=== PATIENT | male | born 1965 | race Caucasian/White ===

== ENCOUNTER 2018-03-02 10:25 | Day surgery (SDC) | payer BC ==
[2018-03-02] MEDS ORDERED: fentaNYL 100 MCG/2 ML SDV ONE (11:14)
[2018-03-02] MEDS ORDERED: Propofol 200 MG/20 ML SDV ONE ×4 (11:14→12:34)
[2018-03-02] MEDS: Lactated Ringers 1,000 ML IV SCH (11:28)
--- NOTE | 2018-03-03 12:15 | OR ---
PREOPERATIVE DIAGNOSIS: Positive FIT test. POSTOPERATIVE DIAGNOSIS: Positive FIT test. PROCEDURE PERFORMED: Colonoscopy with polypectomy. INDICATION: The patient is a 52-year-old male with history of positive FIT test. No previous colonoscopy. He presented for screening colonoscopy at this time. PROCEDURE IN DETAILS: The patient was brought to the operating room. Sedation was given per Anesthesia. He was placed in left lateral position. First, rectal exam was done, which was normal. Scope was then introduced into the rectum, slowly advanced through the rectum, sigmoid, descending, transverse, and ascending colon until the cecum was reached. Upon reaching the cecum, the scope was slowly withdrawn, looking all mucosal surfaces on the way out. In the cecum, a polyp was noted and removed by hot loop forceps. In the ascending colon, a polyp was noted and removed by hot loop forceps. This was un- retrievable. At 100 cm, another polyp was found, removed by hot loop forceps. At 90 cm, 2 polyps were located and removed by hot loop forceps. At 70 cm, 1 polyp was located, removed by hot loop forceps. At 55 cm, 2 polyps were located and removed by hot loop forceps and finally at 15 cm, a single polyp was started with hot loop forceps. The remainder of the exam was normal. FINAL DIAGNOSIS: Multiple polyps removed. BKD: 03/02/2018 13:08:59 MODL: 03/02/2018 15:09:32 /[id number]
== END 2018-03-02 13:47 | disposition home or self-care (01) ==
LOC: VM.SDS 10:25
PROVIDERS: ATTEND Surgery
DX: R19.5 Other fecal abnormalities (principal); D12.0 Benign neoplasm of cecum; D12.3 Benign neoplasm of transverse colon; D12.4 Benign neoplasm of descending colon; D12.5 Benign neoplasm of sigmoid colon; K63.5 Polyp of colon; I10 Essential (primary) hypertension; F17.210 Nicotine dependence, cigarettes, uncomplicated; F31.9 Bipolar disorder, unspecified; E78.5 Hyperlipidemia, unspecified; Z79.82 Long term (current) use of aspirin; Z79.899 Other long term (current) drug therapy
CPT/HCPCS: 45384; J2704; J3010; J7120

== ENCOUNTER 2021-08-10 09:18 | Emergency (ER) | payer BC, MEDICAID, OTHER ==
[2021-08-10] MEDS ORDERED: Fluorescein 1 MG Ophth Strip ONE (09:29)
[2021-08-10] MEDS ORDERED: Proparacaine 0.5% Ophth Soln 15 ML Bottle ONE (09:29)
--- NOTE | 2021-08-10 10:38 | EDM.PDOC ---
ED HPI GENERAL MEDICAL PROBLEM - General Chief Complaint: Eye Problems Stated Complaint: METAL IN EYE Time Seen by Provider: 08/10/21 09:35 Source of Information: Reports: Patient History Limitations: Reports: No Limitations - History of Present Illness INITIAL COMMENTS - FREE TEXT/NARRATIVE: Pt. presents to ER with complaints of pain to L eye. He states that he was drilling metal with a drill and felt something fly into his eye. Denies any acute vision loss or change. [facility] [place]. Onset: Today Onset Date: 08/10/21 Location: Reports: Face Quality: Reports: Burning, Sharp - Related Data Allergies Allergy/AdvReac Type Severity Reaction Status Date / Time No Known Allergies Allergy Unverified 08/10/21 09:37 Home Meds: Home Meds Citalopram Hydrobromide [Celexa] 20 mg PO DAILY 02/27/18 [History] NIFEdipine [Adalat cc] 30 mg PO DAILY 02/27/18 [History] OLANZapine [ZyPREXA] 2.5 mg PO DAILY 02/27/18 [History] Tamsulosin [Flomax] 0.4 mg PO DAILY 02/27/18 [History] atorvaSTATin [Lipitor] 20 mg PO DAILY 02/27/18 [History] Hydrochlorothiazide/Lisinopril [Lisinopril-HCTZ 20-12.5 MG] 1 tab PO DAILY 08/10/21 [History] Past Medical History HEENT History: Reports: None Cardiovascular History: Reports: High Cholesterol, Hypertension Respiratory History: Reports: None Gastrointestinal History: Reports: None Genitourinary History: Reports: None, BPH 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 Musculoskeletal History: Reports: None Neurological History: Reports: None Psychiatric History: Reports: Bipolar, Depression, Other (See Below) Other Psychiatric History: INSOMNIA Endocrine/Metabolic History: Reports: None Hematologic History: Reports: None Immunologic History: Reports: None Oncologic (Cancer) History: Reports: None Dermatologic History: Reports: None - Past Surgical History Head Surgeries/Procedures: Reports: None Cardiovascular Surgical History: Reports: None Respiratory Surgical History: Reports: None GI Surgical History: Reports: None Male Surgical History: Reports: None Musculoskeletal Surgical History: Reports: None Social & Family History - Tobacco Use Tobacco Use Status *Q: Unknown Ever Used Tobacco - Caffeine Use Caffeine Use: Reports: Coffee ED ROS GENERAL - Review of Systems Review Of Systems: See Below Constitutional: Reports: No Symptoms HEENT: Reports: Eye Pain. Denies: Vision Change Respiratory: Reports: No Symptoms Cardiovascular: Reports: No Symptoms Endocrine: Reports: No Symptoms GI/Abdominal: Reports: No Symptoms : Reports: No Symptoms Musculoskeletal: Reports: No Symptoms Skin: Reports: No Symptoms Neurological: Reports: No Symptoms Psychiatric: Reports: No Symptoms Hematologic/Lymphatic: Reports: No Symptoms Immunologic: Reports: No Symptoms ED EXAM GENERAL W FULL EYE - Physical Exam Exam: See Below Exam Limited By: No Limitations General Appearance: Alert, WD/WN, No Apparent Distress Eye Exam: Left Eye: Normal Inspection (possible very small foreign body noted L eye.), Bilateral Eye: EOMI, Normal Fundi, PERRL Eyelids: Bilateral: Normal Appearance, Lid Everted for Exam Conjunctiva & Sclera: Left: Foreign Body Cornea Exam: Left: Examined with Flourescein Extraocular Movements: Bilateral: Intact Pupils: Normal Accommodation Pupillary Size: Bilateral: 3 mm Pupillary Reaction: Bilateral: Brisk Anterior Chamber: Left: Normal Appearance Posterior Chamber: Left: Normal Funduscopic Nose: No Blood Head: Atraumatic Course - Vital Signs Last Recorded V/S: Last Vital Signs Temp 37.1 C 08/10/21 09:35 Pulse 60 08/10/21 09:35 Resp 16 08/10/21 09:35 BP 107/44 L 08/10/21 09:35 Pulse Ox 97 08/10/21 09:35 - Orders/Labs/Meds Meds: Medications Discontinued Medications Generic Name Dose Route Start Last Admin Trade Name Janell PRNafisa Reason Stop Dose Admin Fluorescein Sodium Confirm 08/10/21 09:29 08/10/21 09:34 Fluorescein 1 Mg Ophth Strip Administered 08/10/21 09:30 1 mg Dose Administration 1 mg .ROUTE .STK-MED ONE Proparacaine HCl Confirm 08/10/21 09:29 08/10/21 09:34 Proparacaine 0.5% Ophth Soln 15 Ml Bottle Administered 08/10/21 09:30 15 ml Dose Administration 15 ml .ROUTE .STK-MED ONE Departure - Departure Time of Disposition: 10:30 Disposition: Home, Self-Care 01 Clinical Impression: Corneal FB (foreign body) - Discharge Information Instructions: Corneal Abrasion, [id number] Referrals: Zoe,Maricel K, HVAC MECHANIC [Primary Care Provider] - Forms: ED Department Discharge Additional Instructions: Home to rest. 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 Address is [address] [place] [address] in [place] Off work 08-10-2021 due to injury. - Problem List Review Problem List Initiated/Reviewed/Updated: Yes - Assessment/Plan Plan: Pt. was discharged. Appointment was made with [facility] in [place] later in the day. There is a very small speck of metal or possibly a corneal abrasion at the edge of the pupil and iris at 12:00 position. It is too small to visualize with the minimal equipment available at this facility. Pt. will require slit lamp examination.
== END 2021-08-10 10:08 | disposition home or self-care (01) ==
LOC: VM.ED 09:18
DX: T15.02XA Foreign body in cornea, left eye, initial encounter (principal); E78.00 Pure hypercholesterolemia, unspecified; I10 Essential (primary) hypertension; N40.0 Benign prostatic hyperplasia without lower urinary tract symptoms; Z79.899 Other long term (current) drug therapy
CPT/HCPCS: 99283

== ENCOUNTER 2025-05-15 21:57 | Emergency (ER) | payer BC ==
[2025-05-16 01:19] LABS: BASOPHILS ABSOLUTE AUTO 0.0 x10^3/uL (0.0-0.2); BASOPHILS PERCENT AUTO 0.4 % (0.2-1.2); EOSINOPHILS ABSOLUTE AUTO 0.2 x10^3/uL (0.0-0.5); EOSINOPHILS PERCENT AUTO 2.3 % (0.0-4.0); IMMATURE GRAN ABSOLUTE AUTO 0.05 x10^3/uL (0.00-0.07); IMMATURE GRAN PERCENT AUTO 0.50 % (0.00-0.43); LYMPHOCYTES ABSOLUTE AUTO 5.5 x10^3/uL (1.0-4.8); LYMPHOCYTES PERCENT AUTO 55.4 % (25.0-50.0); MONOCYTES ABSOLUTE AUTO 0.7 x10^3/uL (0.0-0.8); MONOCYTES PERCENT AUTO 6.6 % (2.0-11.0); NEUTROPHILS ABSOLUTE AUTO 3.5 x10^3/uL (1.8-7.7); NEUTROPHILS PERCENT AUTO 34.8 % (50.0-80.0); PLATELET COUNT,PLT 291 x10^3/uL (130-400); RED BLOOD CELL COUNT 4.46 x10^6/uL (4.5-6.0)
[2025-05-16 01:36] LABS: WHITE BLOOD CELL COUNT,WBC 10.0 x10^3/uL (4.0-10.0)
[2025-05-16 01:40] LABS: APPEARANCE,URINE CLEAR (CLEAR); GLUCOSE,URINE NEGATIVE (NEGATIVE); OCCULT BLOOD,URINE NEGATIVE (NEGATIVE)
[2025-05-16 01:42] LABS: A/G RATIO 1.38; ALANINE AMINOTRANSFERASE,ALT 50 U/L (16-63); ASPARTATE AMNIOTRANSFERASE,AST 43 U/L (15-37); BILIRUBIN TOTAL 0.4 mg/dL (0.2-1.0); BLOOD UREA NITROGEN,BUN 10 mg/dL (7-18); CARBON DIOXIDE,CO2 29 mmol/L (21-32); CHLORIDE,CL 102 mmol/L (98-107); CREATININE 0.7 mg/dL (0.70-1.30); GLUCOSE RANDOM 98 mg/dL (70-99); POTASSIUM,K 3.2 mmol/L (3.5-5.1); PROTEIN TOTAL,TP 6.9 g/dL (6.4-8.2); SODIUM,NA 143 mmol/L (136-145)
[2025-05-16 01:43] LABS: AMPHETAMINES SCREEN, URINE NEGATIVE (NEGATIVE)
[2025-05-16 01:44] LABS: BUPRENORPHINE SCREEN,URINE NEGATIVE (NEGATIVE); COCAINE METABOLITES,URINE NEGATIVE (NEGATIVE); METHADONE SCREEN, URINE NEGATIVE (NEGATIVE); METHAMPHETAMINE SCREEN, URINE NEGATIVE (NEGATIVE); OXYCODONE SCREEN,URINE NEGATIVE (NEGATIVE); PCP SCREEN,URINE NEGATIVE (NEGATIVE); THC SCREEN,URINE 50 NG/ML NEGATIVE (NEGATIVE)
[2025-05-16 01:45] LABS: ESTIMATED GFR 107 mL/min (>=60)
[2025-05-16 01:46] LABS: ETHANOL BLOOD MEDICAL 389 mg/dL (0-3)
[2025-05-16] MEDS: Potassium Chloride 20 MEQ Tab.ER PO STA ×2 (08:28→08:50)
[2025-05-16] MEDS: NIFEdipine 30 MG Tab.ER PO ONE (08:48)
== END 2025-05-16 10:21 ==
LOC: VM.ED 21:57
DX: F10.10 Alcohol abuse, uncomplicated (principal); I10 Essential (primary) hypertension; E78.00 Pure hypercholesterolemia, unspecified; Z79.899 Other long term (current) drug therapy
CPT/HCPCS: 36415; 80053; 80143; 80179; 80305; 80307; 81003; 83735; 85025; 99283; 99284; A9270

== ENCOUNTER 2025-05-25 15:45 | Emergency (ER) | payer BC ==
[2025-05-25 16:12] LABS: BASOPHILS ABSOLUTE AUTO 0.1 x10^3/uL (0.0-0.2); BASOPHILS PERCENT AUTO 0.6 % (0.2-1.2); EOSINOPHILS ABSOLUTE AUTO 0.2 x10^3/uL (0.0-0.5); EOSINOPHILS PERCENT AUTO 2.5 % (0.0-4.0); IMMATURE GRAN ABSOLUTE AUTO 0.04 x10^3/uL (0.00-0.07); IMMATURE GRAN PERCENT AUTO 0.50 % (0.00-0.43); LYMPHOCYTES ABSOLUTE AUTO 4.5 x10^3/uL (1.0-4.8); LYMPHOCYTES PERCENT AUTO 56.8 % (25.0-50.0); MONOCYTES ABSOLUTE AUTO 0.6 x10^3/uL (0.0-0.8); MONOCYTES PERCENT AUTO 7.8 % (2.0-11.0); NEUTROPHILS ABSOLUTE AUTO 2.5 x10^3/uL (1.8-7.7); NEUTROPHILS PERCENT AUTO 31.8 % (50.0-80.0); PLATELET COUNT,PLT 385 x10^3/uL (130-400); RED BLOOD CELL COUNT 4.29 x10^6/uL (4.5-6.0); WHITE BLOOD CELL COUNT,WBC 7.9 x10^3/uL (4.0-10.0)
[2025-05-25 16:25] LABS: A/G RATIO 1.54; ALANINE AMINOTRANSFERASE,ALT 60 U/L (16-63); ASPARTATE AMNIOTRANSFERASE,AST 49 U/L (15-37); BILIRUBIN TOTAL 0.3 mg/dL (0.2-1.0); BLOOD UREA NITROGEN,BUN 11 mg/dL (7-18); CARBON DIOXIDE,CO2 31 mmol/L (21-32); CHLORIDE,CL 98 mmol/L (98-107); CREATININE 1.1 mg/dL (0.70-1.30); GLUCOSE RANDOM 75 mg/dL (70-99); POTASSIUM,K 3.0 mmol/L (3.5-5.1); PROTEIN TOTAL,TP 6.6 g/dL (6.4-8.2); SODIUM,NA 139 mmol/L (136-145)
[2025-05-25 16:26] LABS: ESTIMATED GFR 78 mL/min (>=60)
[2025-05-25 16:27] LABS: ETHANOL BLOOD MEDICAL 317 mg/dL (0-3)
== END 2025-05-25 17:20 | disposition left against medical advice (07) ==
LOC: VM.ED 15:45
DX: F10.120 Alcohol abuse with intoxication, uncomplicated (principal); E87.6 Hypokalemia; I10 Essential (primary) hypertension; E78.00 Pure hypercholesterolemia, unspecified; Z79.899 Other long term (current) drug therapy; Y90.8 Blood alcohol level of 240 mg/100 ml or more
CPT/HCPCS: 36415; 80053; 80307; 85025; 99284

== ENCOUNTER 2025-06-26 16:31 | Emergency (ER) | payer BC ==
[2025-06-26] MEDS: OLANZapine 5 MG Tab.DIS PO ONE (17:07)
== END 2025-06-26 17:25 | disposition home or self-care (01) ==
LOC: VM.ED 16:31
DX: R44.0 Auditory hallucinations (principal); R44.1 Visual hallucinations; I10 Essential (primary) hypertension; E78.00 Pure hypercholesterolemia, unspecified; F17.200 Nicotine dependence, unspecified, uncomplicated; Z79.899 Other long term (current) drug therapy
CPT/HCPCS: 99284; 99285; A9270-GY